=== PATIENT | female | born 1975 | race Caucasian/White ===

== ENCOUNTER 2021-12-30 18:17 | Emergency (ER) | payer BC ==
[~2021-12-30 18:17] MED LIST: CLINDAMYCIN HC300 MG PO; DARVOCET N 1001 TAB PO; LISINOPRIL20 MG PO; METFORMIN1000 MG PO; ROBAXIN750 MG PO; SIMVASTATIN20 MG PO; TRAMADOL HCL50 MG PO; WELLBUTRIN SR150 MG PO
== END 2021-12-30 20:44 | disposition home or self-care (01) ==
LOC: ED 18:17
DX: T40.1X1A Poisoning by heroin, accidental (unintentional), initial encounter (principal); Z79.899 Other long term (current) drug therapy; Z91.040 Latex allergy status; Y92.89 Other specified places as the place of occurrence of the external cause

== ENCOUNTER 2025-02-01 22:37 | Emergency (ER) | payer MEDICARE, MEDICAID | END 2025-02-01 22:48 | disposition left against medical advice (07) | LOC: ED 22:37 | DX: T40.2X1A Poisoning by other opioids, accidental (unintentional), initial encounter (principal); Z79.899 Other long term (current) drug therapy; Z91.040 Latex allergy status; Y92.89 Other specified places as the place of occurrence of the external cause ==